=== PATIENT | male | born 1970 | race Caucasian/White ===

== ENCOUNTER 2022-03-14 01:17 | Emergency (ER) | payer OTHER, MEDICAID ==
[~2022-03-14] VITALS: Ht 165.1 cm; Wt 137.0 kg
[2022-03-14 02:13] LABS: BASOPHILS % 0.8 % (0.0-2.0); EOSINOPHILS % 1.7 % (0.0-5.0); HEMATOCRIT. 39.9 % (42.0-52.0); HEMOGLOBIN. 13.5 g/dL (14.0-18.0); LYMPHOCYTES % 29.6 % (20.0-50.0); MEAN CORPUSCULAR HEMOGLOBIN 30.9 pg (28.0-32.0); MEAN CORPUSCULAR VOLUME 91.6 fL (80.0-94.0); MEAN PLATELET VOLUME 8.4 fl (7.4-10.4); MONOCYTES % 12.7 % (2.0-8.0); NEUTROPHILS % 55.2 % (40.0-76.0); PLATELET 248 x1000/uL (130-400); RED BLOOD CELL COUNT 4.35 mill/uL (4.7-6.1); RED CELL DISTRIBUTION WIDTH 13.6 % (11.6-14.6)
[2022-03-14 02:20] LABS: CHLORIDE 106 mEq/L (98-107)
[2022-03-14 02:30] LABS: ETHANOL BLOOD < 10 mg/dL
[2022-03-14] MEDS ORDERED: MORPHINE SULFATE 4 MG/ML CPJ (NOT FOR IM USE) IV ONE (02:30)
[2022-03-14] MEDS ORDERED: MAGNESIUM/ALUMINUM HYDROXIDE/SIMETHICONE 30ML UDC PO ONE (02:30)
[2022-03-14] MEDS ORDERED: ONDANSETRON HCL 4MG/2ML INJ IV ONE (02:30)
[2022-03-14] MEDS ORDERED: VISCOUS LIDOCAINE 2% 15 ML UDC MM ONE (02:30)
[2022-03-14] MEDS ORDERED: FAMOTIDINE 20MG/2ML VIAL IV ONE (02:30)
[2022-03-14] MEDS ORDERED: LACT1CAP78 MT (03:24)
[2022-03-14] MEDS ORDERED: FAMO40TA70 MT (03:24)
[2022-03-14 05:00] VITALS: BP 149/89
== END 2022-03-14 05:05 | disposition home or self-care (01) ==
LOC: ER 01:45
DX: R14.0 Abdominal distension (gaseous) (principal); R19.7 Diarrhea, unspecified
CPT/HCPCS: 36415; 71045; 80053; 80320; 83690; 83880; 84484; 85025; 93005; 96374; 96375; 99285; J2270; J2405; J3490; G0480

== ENCOUNTER 2022-09-14 17:43 | Emergency (ER) | payer OTHER, MEDICAID ==
[~2022-09-14] VITALS: Ht 170.2 cm; Wt 147.0 kg
[~2022-09-14 17:43] MED LIST: FAMO40TA70 MT; LACT1CAP78 MT
[2022-09-14 17:45] VITALS: BP 143/99
== END 2022-09-14 19:30 | disposition left against medical advice (07) ==
LOC: ER 17:43
DX: R55 Syncope and collapse (principal); R94.31 Abnormal electrocardiogram [ECG] [EKG]
CPT/HCPCS: 71045; 93005; 99283

== ENCOUNTER 2023-05-02 03:39 | Emergency (ER) | payer OTHER ==
[~2023-05-02] VITALS: Ht 165.1 cm; Wt 146.0 kg
[2023-05-02 03:44] VITALS: O2SAT 99
[2023-05-02] MEDS ORDERED: FAMOTIDINE 20MG/2ML VIAL IV STA (03:54)
[2023-05-02 04:48] LABS: CLARITY URINE CLEAR (CLEAR); COLOR URINE YELLOW (YELLOW); KETONES URINE NEGATIVE (NEGATIVE); LEUKOCYTE ESTERASE URINE NEGATIVE (NEGATIVE); NITRITE URINE NEGATIVE (NEGATIVE); OCCULT BLOOD URINE NEGATIVE (NEGATIVE); PROTEIN URINE NEGATIVE (NEGATIVE); UROBILINOGEN URINE 0.2 E.U./dL (0.2-1.0)
[2023-05-02 05:14] LABS: HEMATOCRIT. 39.5 % (42.0-52.0); HEMOGLOBIN. 13.2 g/dL (14.0-18.0); MEAN CORPUSCULAR HEMOGLOBIN 30.9 pg (28.0-32.0); MEAN CORPUSCULAR VOLUME 92.2 fL (80.0-94.0); MEAN PLATELET VOLUME 7.3 fl (7.4-10.4); PLATELET 349 x1000/uL (130-400); RED BLOOD CELL COUNT 4.29 mill/uL (4.7-6.1); RED CELL DISTRIBUTION WIDTH 13.9 % (11.6-14.6)
[2023-05-02 05:22] LABS: CHLORIDE 103 mEq/L (98-107)
[2023-05-02 05:25] LABS: PLATELET ESTIMATE NORMAL
[2023-05-02 05:47] LABS: PROTHROMBIN TIME 10.8 sec (9.6-11.0)
[2023-05-02] MEDS ORDERED: MORPHINE SULFATE 4 MG/ML CPJ (NOT FOR IM USE) IV ONE (06:15)
[2023-05-02] MEDS ORDERED: KETOROLAC 30MG/ML VIAL IV ONE (06:30)
[2023-05-02] MEDS ORDERED: TOPUD PO (08:32)
[2023-05-02] MEDS ORDERED: ONDA4TAB50 PO (08:32)
[2023-05-02 09:40] VITALS: BP 172/102; PULSE 87; RESP 17; TEMP 98.7
== END 2023-05-02 09:46 | disposition home or self-care (01) ==
LOC: ER 04:21
DX: K80.20 Calculus of gallbladder without cholecystitis without obstruction (principal)
CPT/HCPCS: 99285; 96374; 76700; 96375; 80053; 81003; 83690; 85025; 85610; 36415; J3490; J1885; J2270

== ENCOUNTER 2023-08-01 13:43 | Emergency (ER) | payer OTHER ==
[~2023-08-01] VITALS: Ht 175.3 cm; Wt 200.0 kg
[~2023-08-01 13:43] MED LIST changes: +ONDA4TAB50 PO; +TOPUD PO
[2023-08-01 13:59] VITALS: TEMP 98.6; O2SAT 95
[2023-08-01] MEDS ORDERED: ACETAMINOPHEN 325MG TABLET PO STA (14:44)
[2023-08-01 15:20] LABS: BASOPHILS % 0.6 % (0.0-2.0); EOSINOPHILS % 0.2 % (0.0-5.0); HEMATOCRIT. 43.2 % (42.0-52.0); HEMOGLOBIN. 14.5 g/dL (14.0-18.0); LYMPHOCYTES % 14.7 % (20.0-50.0); MEAN CORPUSCULAR HEMOGLOBIN 30.5 pg (28.0-32.0); MEAN CORPUSCULAR HGB CONC 33.4 g/dL (31.0-37.0); MEAN CORPUSCULAR VOLUME 91.3 fL (80.0-94.0); MEAN PLATELET VOLUME 7.9 fl (7.4-10.4); MONOCYTES % 6.2 % (2.0-8.0); NEUTROPHILS % 78.3 % (40.0-76.0); PLATELET 248 x1000/uL (130-400); RED BLOOD CELL COUNT 4.73 mill/uL (4.7-6.1); RED CELL DISTRIBUTION WIDTH 13.5 % (11.6-14.6); WHITE BLOOD COUNT 10.8 x1000/uL (4.5-11.0)
[2023-08-01 15:24] LABS: CHLORIDE 104 mEq/L (98-107); INDEX HEMOLYSI 1 (1-3); INDEX ICTERIC 1 (1-4); INDEX LIPEMIC 1 (1-3); POTASSIUM 4.2 mEq/L (3.5-5.1); SODIUM 136 mEq/L (136-145)
[2023-08-01 15:31] LABS: ALANINE AMINOTRANSFERASE 51 IU/L (13-61); ALBUMIN 3.4 g/dL (3.4-5.0); ASPARTATE AMINOTRANSFERASE 32 IU/L (15-37); BILIRUBIN TOTAL 0.4 mg/dL (0.1-1.0); CALCIUM 8.1 mg/dL (8.5-10.1); CARBON DIOXIDE 28 mEq/L (21-32); CREATININE 0.7 mg/dL (0.6-1.3); GLUCOSE 128 mg/dL (70-105); PROTEIN TOTAL 8.4 g/dL (6.0-8.3); UREA NITROGEN BLOOD 12 mg/dL (7-21)
[2023-08-01] MEDS ORDERED: ACETAMINOPHEN 325MG TABLET PO NR (16:45)
[2023-08-01 17:23] VITALS: BP 150/68; PULSE 78; RESP 20
== END 2023-08-01 17:26 | disposition home or self-care (01) ==
LOC: ER 13:43
DX: K80.20 Calculus of gallbladder without cholecystitis without obstruction (principal)
CPT/HCPCS: 36415; 76705; 80053; 85025; 99284